=== PATIENT | male | born 1935 | race Hispanic/Latino ===

== ENCOUNTER 2017-02-15 10:11 | Inpatient (IN) | payer MEDICARE ==
--- NOTE | 2017-02-15 10:49 | Emergency Department Report ---
ED Altered Mental Status HPI - General Chief Complaint: Altered Mental Status Stated Complaint: SLURRED SPEECH Time Seen by Provider: 02/15/17 10:36 Source: patient, EMS Mode of arrival: Stretcher Limitations: Altered Mental Status - History of Present Illness Initial Comments: 81-year-old male presents to the emergency department for evaluation of altered mental status. Patient states that several weeks he has been having intermittent episodes of confusion and dizziness. He states he is unable to walk a straight line. He reports symptoms got worse this morning. He denies pain, but does report ringing in his left ear. There are no other complaints. MD Complaint: confusion -: Gradual, week(s) Severity: moderate Consistency of Symptoms: waxing and waning, getting worse Context: history of similar presen Associated Symptoms: denies other symptoms - Related Data Allergies Allergy/AdvReac Type Severity Reaction Status Date / Time No Known Allergies Allergy Unverified 02/15/17 10:36 ED Review of Systems ROS: Stated complaint: SLURRED SPEECH Other details as noted in HPI Comment: All other systems reviewed and negative Neurological: confusion, abnormal gait, vertigo ED Past Medical Hx - Past Medical History Previous Medical History?: Yes Hx Hypertension: Yes - Surgical History Past Surgical History?: No - Family History Family history: no significant - Social History Smoking Status: Never Smoker Substance Use Type: None ED Physical Exam - General Limitations: No Limitations General appearance: alert, in no apparent distress - Head Head exam: Present: atraumatic, normocephalic - Eye Eye exam: Present: normal appearance, PERRL, EOMI - ENT ENT exam: Present: normal exam, normal orophraynx, mucous membranes moist, TM's normal bilaterally, normal external ear exam, other (slightly decreased hearing) - Neck Neck exam: Present: normal inspection, full ROM. Absent: tenderness - Respiratory Respiratory exam: Present: normal lung sounds bilaterally. Absent: respiratory distress - Cardiovascular Cardiovascular Exam: Present: regular rate, normal rhythm, normal heart sounds - GI/Abdominal GI/Abdominal exam: Present: soft, normal bowel sounds. Absent: distended, tenderness - Extremities Exam Extremities exam: Present: normal inspection, full ROM. Absent: tenderness - Back Exam Back exam: Present: normal inspection, full ROM. Absent: tenderness - Neurological Exam Neurological exam: Present: alert, oriented X3, other (Upon standing, patient reports some dizziness, but appears to be steady on his feet. ). Absent: motor sensory deficit - Skin Skin exam: Present: warm, dry, intact - Assessment Assessment Interval: Baseline - Level of Consciousness 1a. Level of Consciousness: alert - LOC Questions 1b. LOC Questions: answers correctly - LOC Command 1c. LOC Commands: performs tasks correctly - Best Gaze 2. Best Gaze: normal - Visual 3. Visual: no visual loss - Facial Palsy 4. Facial Palsy: normal symmetrical movement - Motor Arm 5b. Motor Arm Right: no drift 5a. Motor Arm Left: no drift - Motor Leg 6a. Motor Leg Left: no drift 6b. Motor Leg Right: no drift - Limb Ataxia 7. Limb Ataxia: absent - Sensory 8. Sensory: normal - Best Language 9. Best Language: no aphasia - Dysarthria 10. Dysarthria: normal - Extinction and Inattention 11. Extinction/Inattention: no abnormality - Scoring Total Score: 0 Stroke Severity: No Stroke Symptoms ED Course Vital Signs 02/15/17 02/15/17 02/15/17 10:25 10:30 11:00 Temperature 97.6 F Pulse Rate 79 75 70 Respiratory 16 15 Rate Blood Pressure 139/62 135/65 O2 Sat by Pulse 98 99 Oximetry 02/15/17 11:46 Temperature Pulse Rate Respiratory 18 Rate Blood Pressure O2 Sat by Pulse 99 Oximetry - Lab Data Result diagrams: 02/15/17 10:53 02/15/17 10:53 Lab Results 02/15/17 02/15/17 02/15/17 Range/Units 10:53 10:53 10:53 WBC 5.5 (4.5-11.0) K/mm3 RBC 4.29 (3.65-5.03) M/mm3 Hgb 12.7 (11.8-15.2) gm/dl Hct 38.3 (35.5-45.6) % MCV 89 (84-94) fl MCH 30 (28-32) pg MCHC 33 (32-34) % RDW 14.4 (13.2-15.2) % Plt Count 186 (140-440) K/mm3 Lymph % (Auto) 13.7 (13.4-35.0) % Simpson % (Auto) 6.1 (0.0-7.3) % Eos % (Auto) 2.7 (0.0-4.3) % Baso % (Auto) 0.7 (0.0-1.8) % Lymph # 0.8 L (1.2-5.4) K/mm3 Simpson # 0.3 (0.0-0.8) K/mm3 Eos # 0.1 (0.0-0.4) K/mm3 Baso # 0.0 (0.0-0.1) K/mm3 Seg Neutrophils % 76.8 H (40.0-70.0) % Seg Neutrophils # 4.3 (1.8-7.7) K/mm3 Sodium 144 (137-145) mmol/L Potassium 2.8 L* (3.6-5.0) mmol/L Chloride 108.7 H (98-107) mmol/L Carbon Dioxide 16 L (22-30) mmol/L Anion Gap 22 mmol/L BUN 41 H (9-20) mg/dL Creatinine 2.3 H (0.8-1.5) mg/dL Estimated GFR 27 ml/min BUN/Creatinine Ratio 17.82 % Glucose 150 H (75-100) mg/dL POC Glucose (70-105) Lactic Acid 1.1 (0.7-2.0) mmol/L Calcium 8.0 L (8.4-10.2) mg/dL Magnesium 2.6 H (1.7-2.3) mg/dL Total Bilirubin 0.2 (0.1-1.2) mg/dL AST 63 H (5-40) units/L ALT 26 (7-56) units/L Alkaline Phosphatase 58 (35-129) units/L Total Protein 7.0 (6.3-8.2) g/dL Albumin 3.7 L (3.9-5) g/dL Albumin/Globulin Ratio 1.1 % TSH (0.270-4.200) mlU/mL Urine Color (Yellow) Urine Turbidity (Clear) Urine pH (5.0-7.0) Ur Specific [place] (1.003-1.030) Urine Protein (Negative) mg/dL Urine Glucose (UA) (Negative) mg/dL Urine Ketones (Negative) mg/dL Urine Blood (Negative) Urine Nitrite (Negative) Urine Bilirubin (Negative) Urine Urobilinogen (<2.0) mg/dL Ur Leukocyte Esterase (Negative) Urine WBC (Auto) (0.0-6.0) /HPF Urine RBC (Auto) (0.0-6.0) /HPF U Epithel Cells (Auto) (0-13.0) /HPF Urine Mucus /HPF Salicylates (2.8-20.0) mg/dL Urine Opiates Screen Urine Methadone Screen Acetaminophen (10.0-30.0) ug/mL Ur Barbiturates Screen Ur Phencyclidine Scrn Ur Amphetamines Screen U Benzodiazepines Scrn Urine Cocaine Screen U Marijuana (THC) Screen Drugs of Abuse Note Plasma/Serum Alcohol (0-0.07) gm% 02/15/17 02/15/17 02/15/17 Range/Units 10:53 10:53 10:53 WBC (4.5-11.0) K/mm3 RBC (3.65-5.03) M/mm3 Hgb (11.8-15.2) gm/dl Hct (35.5-45.6) % MCV (84-94) fl MCH (28-32) pg MCHC (32-34) % RDW (13.2-15.2) % Plt Count (140-440) K/mm3 Lymph % (Auto) (13.4-35.0) % Simpson % (Auto) (0.0-7.3) % Eos % (Auto) (0.0-4.3) % Baso % (Auto) (0.0-1.8) % Lymph # (1.2-5.4) K/mm3 Simpson # (0.0-0.8) K/mm3 Eos # (0.0-0.4) K/mm3 Baso # (0.0-0.1) K/mm3 Seg Neutrophils % (40.0-70.0) % Seg Neutrophils # (1.8-7.7) K/mm3 Sodium (137-145) mmol/L Potassium (3.6-5.0) mmol/L Chloride (98-107) mmol/L Carbon Dioxide (22-30) mmol/L Anion Gap mmol/L BUN (9-20) mg/dL Creatinine (0.8-1.5) mg/dL Estimated GFR ml/min BUN/Creatinine Ratio % Glucose (75-100) mg/dL POC Glucose (70-105) Lactic Acid (0.7-2.0) mmol/L Calcium (8.4-10.2) mg/dL Magnesium (1.7-2.3) mg/dL Total Bilirubin (0.1-1.2) mg/dL AST (5-40) units/L ALT (7-56) units/L Alkaline Phosphatase (35-129) units/L Total Protein (6.3-8.2) g/dL Albumin (3.9-5) g/dL Albumin/Globulin Ratio % TSH 0.156 L (0.270-4.200) mlU/mL Urine Color (Yellow) Urine Turbidity (Clear) Urine pH (5.0-7.0) Ur Specific [place] (1.003-1.030) Urine Protein (Negative) mg/dL Urine Glucose (UA) (Negative) mg/dL Urine Ketones (Negative) mg/dL Urine Blood (Negative) Urine Nitrite (Negative) Urine Bilirubin (Negative) Urine Urobilinogen (<2.0) mg/dL Ur Leukocyte Esterase (Negative) Urine WBC (Auto) (0.0-6.0) /HPF Urine RBC (Auto) (0.0-6.0) /HPF U Epithel Cells (Auto) (0-13.0) /HPF Urine Mucus /HPF Salicylates 56.3 H (2.8-20.0) mg/dL Urine Opiates Screen Urine Methadone Screen Acetaminophen < 15.0 (10.0-30.0) ug/mL Ur Barbiturates Screen Ur Phencyclidine Scrn Ur Amphetamines Screen U Benzodiazepines Scrn Urine Cocaine Screen U Marijuana (THC) Screen Drugs of Abuse Note Plasma/Serum Alcohol (0-0.07) gm% 02/15/17 02/15/17 02/15/17 Range/Units 10:53 11:27 11:45 WBC (4.5-11.0) K/mm3 RBC (3.65-5.03) M/mm3 Hgb (11.8-15.2) gm/dl Hct (35.5-45.6) % MCV (84-94) fl MCH (28-32) pg MCHC (32-34) % RDW (13.2-15.2) % Plt Count (140-440) K/mm3 Lymph % (Auto) (13.4-35.0) % Simpson % (Auto) (0.0-7.3) % Eos % (Auto) (0.0-4.3) % Baso % (Auto) (0.0-1.8) % Lymph # (1.2-5.4) K/mm3 Simpson # (0.0-0.8) K/mm3 Eos # (0.0-0.4) K/mm3 Baso # (0.0-0.1) K/mm3 Seg Neutrophils % (40.0-70.0) % Seg Neutrophils # (1.8-7.7) K/mm3 Sodium (137-145) mmol/L Potassium (3.6-5.0) mmol/L Chloride (98-107) mmol/L Carbon Dioxide (22-30) mmol/L Anion Gap mmol/L BUN (9-20) mg/dL Creatinine (0.8-1.5) mg/dL Estimated GFR ml/min BUN/Creatinine Ratio % Glucose (75-100) mg/dL POC Glucose 139 H (70-105) Lactic Acid (0.7-2.0) mmol/L Calcium (8.4-10.2) mg/dL Magnesium (1.7-2.3) mg/dL Total Bilirubin (0.1-1.2) mg/dL AST (5-40) units/L ALT (7-56) units/L Alkaline Phosphatase (35-129) units/L Total Protein (6.3-8.2) g/dL Albumin (3.9-5) g/dL Albumin/Globulin Ratio % TSH (0.270-4.200) mlU/mL Urine Color Yellow (Yellow) Urine Turbidity Clear (Clear) Urine pH 5.0 (5.0-7.0) Ur Specific [place] 1.018 (1.003-1.030) Urine Protein 30 mg/dl (Negative) mg/dL Urine Glucose (UA) Neg (Negative) mg/dL Urine Ketones Tr (Negative) mg/dL Urine Blood Mod (Negative) Urine Nitrite Neg (Negative) Urine Bilirubin Neg (Negative) Urine Urobilinogen < 2.0 (<2.0) mg/dL Ur Leukocyte Esterase Neg (Negative) Urine WBC (Auto) 1.0 (0.0-6.0) /HPF Urine RBC (Auto) 1.0 (0.0-6.0) /HPF U Epithel Cells (Auto) < 1.0 (0-13.0) /HPF Urine Mucus Few /HPF Salicylates (2.8-20.0) mg/dL Urine Opiates Screen Urine Methadone Screen Acetaminophen (10.0-30.0) ug/mL Ur Barbiturates Screen Ur Phencyclidine Scrn Ur Amphetamines Screen U Benzodiazepines Scrn Urine Cocaine Screen U Marijuana (THC) Screen Drugs of Abuse Note Plasma/Serum Alcohol < 0.01 (0-0.07) gm% 02/15/17 Range/Units 11:45 WBC (4.5-11.0) K/mm3 RBC (3.65-5.03) M/mm3 Hgb (11.8-15.2) gm/dl Hct (35.5-45.6) % MCV (84-94) fl MCH (28-32) pg MCHC (32-34) % RDW (13.2-15.2) % Plt Count (140-440) K/mm3 Lymph % (Auto) (13.4-35.0) % Simpson % (Auto) (0.0-7.3) % Eos % (Auto) (0.0-4.3) % Baso % (Auto) (0.0-1.8) % Lymph # (1.2-5.4) K/mm3 Simpson # (0.0-0.8) K/mm3 Eos # (0.0-0.4) K/mm3 Baso # (0.0-0.1) K/mm3 Seg Neutrophils % (40.0-70.0) % Seg Neutrophils # (1.8-7.7) K/mm3 Sodium (137-145) mmol/L Potassium (3.6-5.0) mmol/L Chloride (98-107) mmol/L Carbon Dioxide (22-30) mmol/L Anion Gap mmol/L BUN (9-20) mg/dL Creatinine (0.8-1.5) mg/dL Estimated GFR ml/min BUN/Creatinine Ratio % Glucose (75-100) mg/dL POC Glucose (70-105) Lactic Acid (0.7-2.0) mmol/L Calcium (8.4-10.2) mg/dL Magnesium (1.7-2.3) mg/dL Total Bilirubin (0.1-1.2) mg/dL AST (5-40) units/L ALT (7-56) units/L Alkaline Phosphatase (35-129) units/L Total Protein (6.3-8.2) g/dL Albumin (3.9-5) g/dL Albumin/Globulin Ratio % TSH (0.270-4.200) mlU/mL Urine Color (Yellow) Urine Turbidity (Clear) Urine pH (5.0-7.0) Ur Specific [place] (1.003-1.030) Urine Protein (Negative) mg/dL Urine Glucose (UA) (Negative) mg/dL Urine Ketones (Negative) mg/dL Urine Blood (Negative) Urine Nitrite (Negative) Urine Bilirubin (Negative) Urine Urobilinogen (<2.0) mg/dL Ur Leukocyte Esterase (Negative) Urine WBC (Auto) (0.0-6.0) /HPF Urine RBC (Auto) (0.0-6.0) /HPF U Epithel Cells (Auto) (0-13.0) /HPF Urine Mucus /HPF Salicylates (2.8-20.0) mg/dL Urine Opiates Screen Presumptive negative Urine Methadone Screen Presumptive negative Acetaminophen (10.0-30.0) ug/mL Ur Barbiturates Screen Presumptive negative Ur Phencyclidine Scrn Presumptive negative Ur Amphetamines Screen Presumptive negative U Benzodiazepines Scrn Presumptive negative Urine Cocaine Screen Presumptive negative U Marijuana (THC) Screen Presumptive negative Drugs of Abuse Note Disclamer Plasma/Serum Alcohol (0-0.07) gm% - EKG Data -: EKG Interpreted by Sd EKG shows normal: sinus rhythm, axis, intervals, QRS complexes, ST-T waves Rate: normal When compared to previous EKG there are: previous EKG unavailable Interpretation: normal EKG - Radiology Data Radiology results: report reviewed, image reviewed CT of the brain shows no acute intracranial abnormality. - Medical Decision Making Lab and imaging results reviewed and discussed with the patient and friend at bedside. Potassium is being replaced orally. Giving IV fluids. I have spoken with Dr. Baldwin, nephrology. Patient is to be admitted by the hospitalist. - Differential Diagnosis cerebellar stroke, labrynthitis Critical care attestation.: If time is entered above; I have spent that time in minutes in the direct care of this critically ill patient, excluding procedure time. ED Disposition Clinical Impression: Hypokalemia Salicylate overdose Qualifiers: Encounter type: initial encounter Injury intent: accidental or unintentional Qualified Code(s): T39.091A - Poisoning by salicylates, accidental ( unintentional), initial encounter Disposition: OP ADMITTED IP TO THIS HOSP Is pt being admited?: Yes Condition: Stable Referrals: PRIMARY CARE, [Primary Care Provider] - 3-5 Days Time of Disposition: 13:40
[2017-02-15 11:17] LABS: Basophils % (Auto) 0.7 % (0.0-1.8); Eosinophils % (Auto) 2.7 % (0.0-4.3); Hematocrit 38.3 % (35.5-45.6); Hemoglobin 12.7 gm/dl (11.8-15.2); Mean Corpuscular HGB Conc 33 % (32-34); Mean Corpuscular Hemoglobin 30 pg (28-32); Mean Corpuscular Volume 89 fl (84-94); Platelet Count 186 K/mm3 (140-440); Red Blood Count 4.29 M/mm3 (3.65-5.03); Red Cell Distribution Width 14.4 % (13.2-15.2); White Blood Count 5.5 K/mm3 (4.5-11.0)
[2017-02-15 11:33] LABS: Albumin 3.7 g/dL (3.9-5); Albumin/Globulin Ratio 1.1 %; BUN/Creatinine Ratio 17.82; Bilirubin,Total 0.2 mg/dL (0.1-1.2); Chloride 108.7 mmol/L (98-107); Magnesium 2.6 mg/dL (1.7-2.3)
[2017-02-15 11:37] LABS: Potassium 2.8 mmol/L (3.6-5.0)
[2017-02-15 11:47] LABS: Urine Drugs of Abuse Note Disclamer
[2017-02-15 11:56] LABS: Bilirubin,Urine NEG (Negative); Blood,Urine MOD (Negative); Ketones,Urine TR mg/dL (Negative); Leukocyte Esterase,Urine NEG (Negative); Mucus,Urine FEW /HPF; Nitrite,Urine NEG (Negative); Urobilinogen,Urine < 2.0 mg/dL (<2.0)
[2017-02-15] MEDS ORDERED: K-DUR PO ONE ×2 (12:10→15:52)
[2017-02-15] MEDS ORDERED: NACL 0.9% 1000 ML 1,000 ML IV ONE (12:10)
--- NOTE | 2017-02-15 12:46 | Cat Scan Report ---
CT scan of head without contrast: History: Altered mental status. Findings: Ventricles are normal in size and midline in location. Focal area of low attenuation anterior right basal ganglia, anterior and posterior left basal ganglia suggestive of chronic lacunar infarct. Periventricular area of low attenuation. Moderate volume loss. No evidence of hemorrhage. 2 mm focal area of low attenuation left ze/midbrain suggesting a chronic lacunar infarct. Impression: No acute intracranial abnormality. Multiple chronic lacunar infarcts. Mild cortical atrophy with small vessel ischemic changes. .
[2017-02-15] MEDS ORDERED: SODIUM BICARBONATE 150 MEQ in D5W 1,000 ML IV SCH (16:00)
[2017-02-15] MEDS: KCL 10MEQ/100ML 10 MEQ/100 ML BAG IV SCH ×4 (18:13→23:56)
[2017-02-15 18:58] LABS: ISTAT Base Excess -6; ISTAT DEVICE 0; ISTAT HCO3 16.1; ISTAT PCO2 17.8 (35-45); ISTAT PH 7.564 (7.35-7.45); ISTAT PO2 126 (80-105); ISTAT SO2 99; ISTAT TCO2 17
--- NOTE | 2017-02-15 20:38 | Consultation ---
History of Present Illness - Reason for Consult Consult date: 02/15/17 acute renal failure, chronic renal failure, hypokalemia, metabolic acidosis, other Requesting physician: MARY ELLEN ACOSTA - History of Present Illness 81-year-old male admitted after he presents to the emergency department for evaluation of dizziness several weeks. In association with the dizziness he reports ringing in the left ear and inability to walk a straight line. He reports symptoms got worse this morning so ED visit. No aggravating or relieving factors. Initial labs in ED showed that he has elevated CR of 2.2, and a serum bicarb of 17 and potassium of 2.8. He also had salicylate level checked which was at elevated at 56. Denies deliberate intoxication/suicidal attempt. We are consulted to assit with management of electrolyte abnormalities/ and intoxication. Past History Past Medical History: hypertension Past Surgical History: No surgical history Social history: lives with family. denies: smoking, alcohol abuse, IV drug use Family history: denies: diabetes, hypertension, other (no kidney disease) Medications and Allergies Allergies Allergy/AdvReac Type Severity Reaction Status Date / Time No Known Allergies Allergy Unverified 02/15/17 10:36 Active Meds: Active Medications Sodium Bicarbonate 150 meq/ (Dextrose) 1,150 mls @ 125 mls/hr IV DIRECT JUILAN Review of Systems Constitutional: no weight loss, no weight gain, no fever, no chills Ears, nose, mouth and throat: ear pain (left), tinnitis Cardiovascular: no chest pain, no orthopnea, no palpitations, no edema Respiratory: no cough, no hemoptysis, no shortness of breath Gastrointestinal: no abdominal pain, no nausea, no vomiting, no diarrhea Genitourinary Male: no dysuria, no hematuria, no flank pain Rectal: no pain, no incontinence Musculoskeletal: no neck stiffness, no neck pain, no shooting arm pain Integumentary: no rash, no pruritis, no redness Neurological: gait dysfunction, other (dizziness ) Psychiatric: no anxiety, no memory loss, no change in sleep habits Endocrine: no cold intolerance, no heat intolerance Hematologic/Lymphatic: no easy bruising, no easy bleeding Allergic/Immunologic: no urticaria, no allergic rhinitis Exam - Vital Signs Vital signs: Vital Signs Pulse 79 02/15/17 10:25 - General Appearance General appearance: well-developed, well-nourished, appears stated age EENT: PERRL, mucous membranes moist Neck: Present: neck supple, trachea midline. Absent: JVD/HJR, Masses Respiratory: Clear to Ascultation, Other (no wheezing) Heart: regular, normal heart rate, S1S2, no murmurs Gastrointestinal: Present: normal. Absent: tenderness, distended, masses, guarding Integumentary: no rash, warm and dry Neurologic: no focal deficit, alert and oriented x3, strength 5/5 Musculoskeletal: Absent: deformities, joint swelling Psychiatric: mood/affect appropriate, cooperative Results - Lab Results 02/15/17 10:53 02/15/17 10:53 Most recent lab results Calcium 8.0 mg/dL (8.4-10.2) L 02/15/17 10:53 Magnesium 2.6 mg/dL (1.7-2.3) H 02/15/17 10:53 Assessment and Plan 1. PABLO vs PABLO on CKD, likely related to chronic NSAID ingestion and prerenal azotemia 2. Salicylate intoxication 3. Metabolic acidosis/respiratory alkalosis 2/2 Dx #2 4. Hypokalemia likely 2/2 Dx #2 5. AMS likely 2/2 Dx# 2 6. Left ear pain/tinnitus Plan: K replete Check magnesium level Started D5W with 150 cc of sodium bicarb at 125 cc/hr Check ABG, urine PH Serial ASA levels, BMP, urine PH If ASA levels rise despite measures , progression in his renal disease or neuro sx, pulmonary edema, will consider HD. Poison control to be notified by ED Care plan discussed with ED attending Further recommendations to follow Thank you for the consult.
[2017-02-15] MEDS ORDERED: PERCOCET 5/325 PO PRN (21:24)
[2017-02-15] MEDS ORDERED: TYLENOL PO PRN (21:24)
[2017-02-15] MEDS ORDERED: DULCOLAX PR PRN (21:24)
[2017-02-15] MEDS ORDERED: MILK OF MAGNESIA PO PRN (21:24)
[2017-02-15] MEDS ORDERED: ZOFRAN IV PRN (21:24)
--- NOTE | 2017-02-15 21:24 | History and Physical Report ---
History of Present Illness Date of examination: 02/15/17 Date of admission: 02/15/17 13:41 Chief complaint: Unsteady gait 2 weeks Ringing in the ear 2 weeks History of present illness: Patient is a poor Historian.Took history with the help of a neighbor.Hard of Hearing. 81-year-old male presents to the emergency department for evaluation of altered mental status. Patient states that several weeks he has been having intermittent episodes of confusion and dizziness. He states he is unable to walk a straight line. He reports symptoms got worse this morning. He denies pain, but does report ringing in his left ear. There are no other complaints. MD Complaint: confusion -: Gradual, week(s) Severity: moderate Consistency of Symptoms: waxing and waning, getting worse Context: history of similar presen Associated Symptoms: denies other symptoms No SOB No CP etc Past History Past Medical History: hypertension Past Surgical History: No surgical history Social history: Lives alone. denies: smoking, alcohol abuse, IV drug use Family history: denies: diabetes, hypertension, other (no kidney disease) Medications and Allergies Allergies Allergy/AdvReac Type Severity Reaction Status Date / Time No Known Allergies Allergy Unverified 02/15/17 10:36 Active Meds: Active Medications Sodium Bicarbonate 150 meq/ (Dextrose) 1,150 mls @ 125 mls/hr IV DIRECT JULIAN Review of Systems All systems: negative Constitutional: no weight loss, no weight gain Ears, nose, mouth and throat: tinnitis (For 2 weeks) Cardiovascular: no chest pain, no orthopnea, no syncope, no lightheadedness, no shortness of breath Respiratory: no cough, no cough with sputum Gastrointestinal: no nausea, no vomiting, no diarrhea, no constipation Genitourinary Male: no dysuria, no hematuria, no flank pain, no discharge, no urinary frequency, no urinary hesitancy Musculoskeletal: no neck stiffness, no neck pain Integumentary: no rash, no pruritis, no redness, no sores, no wounds, no jaundice, no boils, no blisters Neurological: no seizures, no syncope Psychiatric: no anxiety, no suicidal ideation, no depression Endocrine: no cold intolerance, no heat intolerance, no polyphagia, no excessive thirst, no polydipsia, no polyuria, no nocturia, no excessive sweating , no flushing, no weight change Hematologic/Lymphatic: no easy bruising, no easy bleeding Allergic/Immunologic: no urticaria, no allergic rhinitis, no wheezing Exam - Physical Exam Narrative exam: Well developed well nourished male - Constitutional Vitals: Temp Pulse Resp BP Pulse Ox 98.9 F 77 18 163/83 98 02/15/17 21:11 02/15/17 21:11 02/15/17 21:11 02/15/17 21:11 02/15/17 21:11 General appearance: Present: no acute distress, well-nourished - EENT Eyes: Present: PERRL ENT: hearing intact, clear oral mucosa - Neck Neck: Present: supple, normal ROM - Respiratory Respiratory effort: normal Respiratory: bilateral: CTA - Cardiovascular Rhythm: regular Heart Sounds: Present: S1 & S2. Absent: rub, click - Extremities Extremities: pulses symmetrical, No edema Peripheral Pulses: within normal limits - Abdominal General gastrointestinal: Present: soft, non-tender, non-distended, normal bowel sounds Male genitourinary: Present: normal - Integumentary Integumentary: Present: clear, warm, dry - Musculoskeletal Musculoskeletal: gait normal, strength equal bilaterally - Psychiatric Psychiatric: appropriate mood/affect, intact judgment & insight - Neurologic Neurologic: CNII-XII intact, moves all extremities - Allied Health Allied health notes reviewed: nursing Results - Labs CBC & Chem 7: 02/16/17 04:05 02/15/17 20:49 Labs: Laboratory Last Values WBC 5.5 K/mm3 (4.5-11.0) 02/15/17 10:53 RBC 4.29 M/mm3 (3.65-5.03) 02/15/17 10:53 Hgb 12.7 gm/dl (11.8-15.2) 02/15/17 10:53 Hct 38.3 % (35.5-45.6) 02/15/17 10:53 MCV 89 fl (84-94) 02/15/17 10:53 MCH 30 pg (28-32) 02/15/17 10:53 MCHC 33 % (32-34) 02/15/17 10:53 RDW 14.4 % (13.2-15.2) 02/15/17 10:53 Plt Count 186 K/mm3 (140-440) 02/15/17 10:53 Lymph % (Auto) 13.7 % (13.4-35.0) 02/15/17 10:53 [place] % (Auto) 6.1 % (0.0-7.3) 02/15/17 10:53 Eos % (Auto) 2.7 % (0.0-4.3) 02/15/17 10:53 Baso % (Auto) 0.7 % (0.0-1.8) 02/15/17 10:53 Lymph # 0.8 K/mm3 (1.2-5.4) L 02/15/17 10:53 [place] # 0.3 K/mm3 (0.0-0.8) 02/15/17 10:53 Eos # 0.1 K/mm3 (0.0-0.4) 02/15/17 10:53 Baso # 0.0 K/mm3 (0.0-0.1) 02/15/17 10:53 Seg Neutrophils % 76.8 % (40.0-70.0) H 02/15/17 10:53 Seg Neutrophils # 4.3 K/mm3 (1.8-7.7) 02/15/17 10:53 POC ABG pH 7.564 (7.35-7.45) H 02/15/17 18:45 POC ABG pCO2 17.8 (35-45) L 02/15/17 18:45 POC ABG pO2 126 (80-105) H 02/15/17 18:45 POC ABG HCO3 16.1 02/15/17 18:45 POC ABG Total CO2 17 02/15/17 18:45 POC ABG O2 Sat 99 02/15/17 18:45 POC ABG Base Excess -6 02/15/17 18:45 FiO2 21 % 02/15/17 18:45 Sodium 144 mmol/L (137-145) 02/15/17 10:53 Potassium 2.8 mmol/L (3.6-5.0) L* 02/15/17 10:53 Chloride 108.7 mmol/L (98-107) H 02/15/17 10:53 Carbon Dioxide 16 mmol/L (22-30) L 02/15/17 10:53 Anion Gap 22 mmol/L 02/15/17 10:53 BUN 41 mg/dL (9-20) H 02/15/17 10:53 Creatinine 2.3 mg/dL (0.8-1.5) H 02/15/17 10:53 Estimated GFR 27 ml/min 02/15/17 10:53 BUN/Creatinine Ratio 17.82 % 02/15/17 10:53 Glucose 150 mg/dL (75-100) H 02/15/17 10:53 POC Glucose 139 (70-105) H 02/15/17 11:27 Lactic Acid 0.6 mmol/L (0.7-2.0) L 02/15/17 13:53 Calcium 8.0 mg/dL (8.4-10.2) L 02/15/17 10:53 Magnesium 2.6 mg/dL (1.7-2.3) H 02/15/17 10:53 Total Bilirubin 0.2 mg/dL (0.1-1.2) 02/15/17 10:53 AST 63 units/L (5-40) H 02/15/17 10:53 ALT 26 units/L (7-56) 02/15/17 10:53 Alkaline Phosphatase 58 units/L (35-129) 02/15/17 10:53 Total Protein 7.0 g/dL (6.3-8.2) 02/15/17 10:53 Albumin 3.7 g/dL (3.9-5) L 02/15/17 10:53 Albumin/Globulin Ratio 1.1 % 02/15/17 10:53 TSH 0.156 mlU/mL (0.270-4.200) L 02/15/17 10:53 Urine Color Yellow (Yellow) 02/15/17 11:45 Urine Turbidity Clear (Clear) 02/15/17 11:45 Urine pH 5.0 (5.0-7.0) 02/15/17 11:45 Ur Specific [place] 1.018 (1.003-1.030) 02/15/17 11:45 Urine Protein 30 mg/dl mg/dL (Negative) 02/15/17 11:45 Urine Glucose (UA) Neg mg/dL (Negative) 02/15/17 11:45 Urine Ketones Tr mg/dL (Negative) 02/15/17 11:45 Urine Blood Mod (Negative) 02/15/17 11:45 Urine Nitrite Neg (Negative) 02/15/17 11:45 Urine Bilirubin Neg (Negative) 02/15/17 11:45 Urine Urobilinogen < 2.0 mg/dL (<2.0) 02/15/17 11:45 Ur Leukocyte Esterase Neg (Negative) 02/15/17 11:45 Urine WBC (Auto) 1.0 /HPF (0.0-6.0) 02/15/17 11:45 Urine RBC (Auto) 1.0 /HPF (0.0-6.0) 02/15/17 11:45 U Epithel Cells (Auto) < 1.0 /HPF (0-13.0) 02/15/17 11:45 Urine Mucus Few /HPF 02/15/17 11:45 Salicylates 49.7 mg/dL (2.8-20.0) H 02/15/17 15:10 Urine Opiates Screen Presumptive negative 02/15/17 11:45 Urine Methadone Screen Presumptive negative 02/15/17 11:45 Acetaminophen < 15.0 ug/mL (10.0-30.0) 02/15/17 10:53 Ur Barbiturates Screen Presumptive negative 02/15/17 11:45 Ur Phencyclidine Scrn Presumptive negative 02/15/17 11:45 Ur Amphetamines Screen Presumptive negative 02/15/17 11:45 U Benzodiazepines Scrn Presumptive negative 02/15/17 11:45 Urine Cocaine Screen Presumptive negative 02/15/17 11:45 U Marijuana (THC) Screen Presumptive negative 02/15/17 11:45 Drugs of Abuse Note Disclamer 02/15/17 11:45 Plasma/Serum Alcohol < 0.01 gm% (0-0.07) 02/15/17 10:53 - Imaging and Cardiology EKG: report reviewed (NSR) Assessment and Plan Advance Directives: Yes (Full code) VTE prophylaxis?: Chemical Plan of care discussed with patient/family: Yes - Patient Problems (1) Acute renal failure Current Visit: Yes Status: Acute Qualifiers: Acute renal failure type: unspecified Qualified Code(s): N17.9 - Acute kidney failure, unspecified Plan to address problem: Possibly sec to NSAID's.IV fluids for now. (2) Salicylate overdose Current Visit: Yes Status: Chronic Qualifiers: Encounter type: initial encounter Injury intent: accidental or unintentional Qualified Code(s): T39.091A - Poisoning by salicylates, accidental (unintentional), initial encounter Plan to address problem: IV fluids for now.Patient to stop salicylates in future.Patient counseled. No suicidal intent.Mental Health consult not ordered. Serial ASA levels, BMP, urine PH If ASA levels rise despite measures , progression in his renal disease or neuro sx, pulmonary edema, consider HD.Nephrology consulted. (3) Hypokalemia Current Visit: Yes Status: Acute Plan to address problem: Supplemented (4) Metabolic acidosis Current Visit: Yes Status: Acute Plan to address problem: sec to Salicylateingestion.IV fluids for now. (5) DVT prophylaxis Current Visit: Yes Status: Acute Plan to address problem: on Lovenox
[2017-02-15] MEDS ORDERED: DILAUDID IV PRN (21:28)
[2017-02-15 21:42] LABS: Albumin 3.8 g/dL (3.9-5); Albumin/Globulin Ratio 1.1 %; BUN/Creatinine Ratio 16.95; Bilirubin,Total 0.2 mg/dL (0.1-1.2); Chloride 112.3 mmol/L (98-107); Potassium 3.3 mmol/L (3.6-5.0); Total Protein 7.3 g/dL (6.3-8.2)
[2017-02-15] MEDS: PEPCID PO SCH (22:36)
[2017-02-15] MEDS: D5NS 1,000 ML IV SCH (22:37)
[2017-02-16] MEDS: KCL 10MEQ/100ML 10 MEQ/100 ML BAG IV SCH ×2 (01:17→03:12)
[2017-02-16 06:17] LABS: Basophils % (Auto) 0.4 % (0.0-1.8); Eosinophils % (Auto) 4.4 % (0.0-4.3); Hematocrit 37.1 % (35.5-45.6); Hemoglobin 12.2 gm/dl (11.8-15.2); Mean Corpuscular HGB Conc 33 % (32-34); Mean Corpuscular Hemoglobin 29 pg (28-32); Mean Corpuscular Volume 89 fl (84-94); Platelet Count 174 K/mm3 (140-440); Red Blood Count 4.16 M/mm3 (3.65-5.03); White Blood Count 5.8 K/mm3 (4.5-11.0)
[2017-02-16] MEDS: D5NS 1,000 ML IV SCH ×2 (07:02→11:12)
[2017-02-16 08:53] LABS: BUN/Creatinine Ratio 18.75; Calcium 7.6 mg/dL (8.4-10.2); Chloride 118.3 mmol/L (98-107); Potassium 3.6 mmol/L (3.6-5.0)
[2017-02-16] MEDS ORDERED: LOVENOX SUB-Q SCH (10:00)
--- NOTE | 2017-02-16 10:23 | Progress Note ---
Assessment and Plan Assessment and plan: 1. Acute renal failure. Etiology secondary to Acute kidney injury from chronic NSAID ingestion and prerenal azotemia. We do not have a baseline creatinine to compare. Patient's creatinine however has improved from 2.3-1.6. Continue IV fluid hydration/sodium bicarbonate infusion. We'll check serial salicylate levels, BMP and urine pH. Nephrology following. 2. Salicylate intoxication. No need for hemodialysis currently. Continue to monitor ASA levels and BMP. 3. Metabolic acidosis. Etiology secondary to #2. Continue to monitor. 4. Hypokalemia. Replete potassium as needed. 5. Metabolic Encephalopathy. Resolved. 6. Left ear pain/tinnitis. Etiology secondary to #2. 7. DVT prophylaxis. Continue Lovenox. History Interval history: 81-year-old male admitted with diagnosis of salicylate overdose and acute renal failure. No new issues overnight. Hospitalist Physical - Constitutional Vitals: Temp Pulse Resp BP Pulse Ox 97.9 F 72 20 168/77 100 02/16/17 07:22 02/16/17 07:22 02/16/17 07:22 02/16/17 07:22 02/16/17 07:22 General appearance: Present: no acute distress, well-nourished - EENT Eyes: Present: PERRL, EOM intact ENT: hearing intact, clear oral mucosa, dentition normal - Neck Neck: Present: supple, normal ROM - Respiratory Respiratory effort: normal Respiratory: bilateral: CTA - Cardiovascular Rhythm: regular Heart Sounds: Present: S1 & S2. Absent: gallop, rub - Extremities Extremities: no ischemia, No edema, Full ROM - Abdominal General gastrointestinal: soft, non-tender, non-distended, normal bowel sounds - Integumentary Integumentary: Present: clear, warm, dry - Neurologic Neurologic: CNII-XII intact, moves all extremities Results - Labs CBC & Chem 7: 02/16/17 04:05 02/16/17 08:18 Labs: Laboratory Last Values WBC 5.8 K/mm3 (4.5-11.0) 02/16/17 04:05 RBC 4.16 M/mm3 (3.65-5.03) 02/16/17 04:05 Hgb 12.2 gm/dl (11.8-15.2) 02/16/17 04:05 Hct 37.1 % (35.5-45.6) 02/16/17 04:05 MCV 89 fl (84-94) 02/16/17 04:05 MCH 29 pg (28-32) 02/16/17 04:05 MCHC 33 % (32-34) 02/16/17 04:05 RDW 15.0 % (13.2-15.2) 02/16/17 04:05 Plt Count 174 K/mm3 (140-440) 02/16/17 04:05 Lymph % (Auto) 27.3 % (13.4-35.0) 02/16/17 04:05 [place] % (Auto) 8.9 % (0.0-7.3) H 02/16/17 04:05 Eos % (Auto) 4.4 % (0.0-4.3) H 02/16/17 04:05 Baso % (Auto) 0.4 % (0.0-1.8) 02/16/17 04:05 Lymph # 1.6 K/mm3 (1.2-5.4) 02/16/17 04:05 [place] # 0.5 K/mm3 (0.0-0.8) 02/16/17 04:05 Eos # 0.3 K/mm3 (0.0-0.4) 02/16/17 04:05 Baso # 0.0 K/mm3 (0.0-0.1) 02/16/17 04:05 Seg Neutrophils % 59.0 % (40.0-70.0) 02/16/17 04:05 Seg Neutrophils # 3.4 K/mm3 (1.8-7.7) 02/16/17 04:05 POC ABG pH 7.564 (7.35-7.45) H 02/15/17 18:45 POC ABG pCO2 17.8 (35-45) L 02/15/17 18:45 POC ABG pO2 126 (80-105) H 02/15/17 18:45 POC ABG HCO3 16.1 02/15/17 18:45 POC ABG Total CO2 17 02/15/17 18:45 POC ABG O2 Sat 99 02/15/17 18:45 POC ABG Base Excess -6 02/15/17 18:45 FiO2 21 % 02/15/17 18:45 Sodium 148 mmol/L (137-145) H 02/16/17 08:18 Potassium 3.6 mmol/L (3.6-5.0) 02/16/17 08:18 Chloride 118.3 mmol/L (98-107) H 02/16/17 08:18 Carbon Dioxide 14 mmol/L (22-30) L 02/16/17 08:18 Anion Gap 19 mmol/L 02/16/17 08:18 BUN 30 mg/dL (9-20) H 02/16/17 08:18 Creatinine 1.6 mg/dL (0.8-1.5) H 02/16/17 08:18 Estimated GFR 41 ml/min 02/16/17 08:18 BUN/Creatinine Ratio 18.75 % 02/16/17 08:18 Glucose 109 mg/dL (75-100) H 02/16/17 08:18 POC Glucose 139 (70-105) H 02/15/17 11:27 Hemoglobin A1c 5.7 % (4-6) 02/15/17 10:53 Lactic Acid 0.6 mmol/L (0.7-2.0) L 02/15/17 13:53 Calcium 7.6 mg/dL (8.4-10.2) L 02/16/17 08:18 Magnesium 2.6 mg/dL (1.7-2.3) H 02/15/17 10:53 Total Bilirubin 0.2 mg/dL (0.1-1.2) 02/15/17 20:49 AST 66 units/L (5-40) H 02/15/17 20:49 ALT 29 units/L (7-56) 02/15/17 20:49 Alkaline Phosphatase 61 units/L (35-129) 02/15/17 20:49 Total Protein 7.3 g/dL (6.3-8.2) 02/15/17 20:49 Albumin 3.8 g/dL (3.9-5) L 02/15/17 20:49 Albumin/Globulin Ratio 1.1 % 02/15/17 20:49 TSH 0.156 mlU/mL (0.270-4.200) L 02/15/17 10:53 Urine Color Yellow (Yellow) 02/15/17 11:45 Urine Turbidity Clear (Clear) 02/15/17 11:45 Urine pH 5.0 (5.0-7.0) 02/15/17 11:45 Ur Specific [place] 1.018 (1.003-1.030) 02/15/17 11:45 Urine Protein 30 mg/dl mg/dL (Negative) 02/15/17 11:45 Urine Glucose (UA) Neg mg/dL (Negative) 02/15/17 11:45 Urine Ketones Tr mg/dL (Negative) 02/15/17 11:45 Urine Blood Mod (Negative) 02/15/17 11:45 Urine Nitrite Neg (Negative) 02/15/17 11:45 Urine Bilirubin Neg (Negative) 02/15/17 11:45 Urine Urobilinogen < 2.0 mg/dL (<2.0) 02/15/17 11:45 Ur Leukocyte Esterase Neg (Negative) 02/15/17 11:45 Urine WBC (Auto) 1.0 /HPF (0.0-6.0) 02/15/17 11:45 Urine RBC (Auto) 1.0 /HPF (0.0-6.0) 02/15/17 11:45 U Epithel Cells (Auto) < 1.0 /HPF (0-13.0) 02/15/17 11:45 Urine Mucus Few /HPF 02/15/17 11:45 Salicylates 45.9 mg/dL (2.8-20.0) H 02/15/17 20:49 Urine Opiates Screen Presumptive negative 02/15/17 11:45 Urine Methadone Screen Presumptive negative 02/15/17 11:45 Acetaminophen < 15.0 ug/mL (10.0-30.0) 02/15/17 10:53 Ur Barbiturates Screen Presumptive negative 02/15/17 11:45 Ur Phencyclidine Scrn Presumptive negative 02/15/17 11:45 Ur Amphetamines Screen Presumptive negative 02/15/17 11:45 U Benzodiazepines Scrn Presumptive negative 02/15/17 11:45 Urine Cocaine Screen Presumptive negative 02/15/17 11:45 U Marijuana (THC) Screen Presumptive negative 02/15/17 11:45 Drugs of Abuse Note Disclamer 02/15/17 11:45 Plasma/Serum Alcohol < 0.01 gm% (0-0.07) 02/15/17 10:53
--- NOTE | 2017-02-16 10:45 | Progress Note ---
Assessment and Plan 1. PABLO vs PABLO on CKD, likely related to chronic NSAID ingestion and prerenal azotemia 2. Salicylate intoxication 3. Metabolic acidosis/respiratory alkalosis 2/2 Dx #2 4. Hypokalemia likely 2/2 Dx #2 5. AMS likely 2/2 Dx# 2, resolved 6. Left ear pain/tinnitus Plan: K improved and salicylate level improving Pt alert and walking in his room. No dizziness He remains to have significant acidosis. Will continue bicarb drip (rate adjusted) Serial ASA levels, BMP, urine PH No need for dialysis at present. Pt responding to conservative medical management. Discussed with son. Subjective Date of service: 02/16/17 Interval history: Feels better, No SOB/CP. Objective - Vital Signs Vital signs: Vital Signs - 12hr 02/16/17 02/16/17 02/16/17 00:43 01:20 01:48 Temperature 98.2 F Pulse Rate 80 Pulse Rate [ 80 78 Left] Respiratory 20 22 Rate Blood Pressure 133/72 [Left Arm] O2 Sat by Pulse 98 Oximetry 02/16/17 02/16/17 05:39 07:22 Temperature 98.3 F 97.9 F Pulse Rate Pulse Rate [ 80 72 Left] Respiratory 20 20 Rate Blood Pressure 158/76 168/77 [Left Arm] O2 Sat by Pulse 99 100 Oximetry - General Appearance General appearance: well-developed, well-nourished, appears stated age EENT: PERRL, mucous membranes moist Neck: no JVD, no thyromegaly, no carotid bruit, supple Respiratory: Present: Clear to Ascultation Cardiology: regular, normal heart rate, S1S2, no murmurs Gastrointestinal: normoactive bowel sounds, no tenderness Integumentary: no rash, warm and dry Neurologic: no focal deficit, alert and oriented x3, reflexes 2+ and symmetric, gait normal, strength 5/5 Musculoskeletal: no deformities, no erythema, no cyanosis, no clubbing Psychiatric: mood/affect appropriate, cooperative - Lab 02/16/17 04:05 02/16/17 08:18 Most recent lab results Calcium 7.6 mg/dL (8.4-10.2) L 02/16/17 08:18 Magnesium 2.6 mg/dL (1.7-2.3) H 02/15/17 10:53
--- NOTE | 2017-02-16 10:54 | XRay Report ---
AP CHEST : 02/15/17 13:41:00 CLINICAL: Salicylate intoxication. COMPARISON:None FINDINGS: Normal heart and pulmonary vessels.Aortic tortuosity and calcification. Prominent bilateral lung markings. An irregular subcentimeter right upper lobe lung nodule. The bones and soft tissues are unremarkable. IMPRESSION: Right upper lobe lung nodule. Recommend CT chest without contrast. Prominent lung markings but no CHF or pneumonia.
[2017-02-16] MEDS: PEPCID PO SCH (11:11)
[2017-02-17] MEDS: BENADRYL PO PRN ×2 (00:54→21:00)
[2017-02-17 05:47] LABS: Basophils % (Auto) 0.4 % (0.0-1.8); Eosinophils % (Auto) 3.5 % (0.0-4.3); Hematocrit 35.2 % (35.5-45.6); Hemoglobin 11.8 gm/dl (11.8-15.2); Mean Corpuscular HGB Conc 33 % (32-34); Mean Corpuscular Hemoglobin 30 pg (28-32); Mean Corpuscular Volume 88 fl (84-94); Platelet Count 166 K/mm3 (140-440); Red Blood Count 3.99 M/mm3 (3.65-5.03); Red Cell Distribution Width 14.3 % (13.2-15.2); White Blood Count 5.4 K/mm3 (4.5-11.0)
[2017-02-17 05:54] LABS: Calcium 7.5 mg/dL (8.4-10.2); Chloride 111.4 mmol/L (98-107)
--- NOTE | 2017-02-17 10:17 | Admit Criteria Form ---
Admission Criteria Documentation: HYPONATREMIA; HYPERNATREMIA; HYPOKALEMIA; HYPERKALEMIA; HYPOCALCEMIA; HYPERCALCEMIA Clinical Indications for Inpatient Care (Place 'X' for any and all applicable criteria): Ongoing inpatient care may be indicated for ANY ONE of the following [G](1)(2)(3 )(5): [ ]I. Hyponatremia with ANY ONE of the following: [ ]a) Sodium less than 130 mEq/L (mmol/L) (new) (6)(22) [ ]b) Sodium less than 135 mEq/L (mmol/L) with ANY ONE of the following: [ ]i) Severe medical etiology requiring inpatient management (eg, heart failure, hypovolemia) [ ]ii) Altered mental status [ ]iii) Seizures [ ]II. Hypernatremia with ANY ONE of the following: [ ]a) Sodium greater than 155 mEq/L (mmol/L) [ ]b) Sodium greater than 150 mEq/L (mmol/L) with ANY ONE of the following: [ ] i) Altered mental status [ ]ii) Seizures [ ]iii) Severe medical etiology (eg, hypovolemia, diabetes insipidus) [ ]iv) Severe weakness [ ]v) Severe medical etiology (eg, hemolysis, infection, drug overdose) [X]III. Hypokalemia with ANY ONE of the following: [ ]a) Potassium less than 2.5 mEq/L (mmol/L) despite outpatient and emergency treatment [X]b) Potassium less than 3.0 mEq/L (mmol/L) with ANY ONE of the following: [ ]i) Weakness [ ]ii) Cardiac abnormality (eg, arrhythmia, conduction disturbance) [ ]iii) Cardiac ischemia [ ]iv) Ileus [X]v) Ongoing medical cause requiring inpatient management. ( e.g., acute renal wasting, SIADH) [ ]vi) Other severe symptoms [ ] IV. Hyperkalemia with ANY ONE of the following: [ ]a) Potassium greater than 6.5 mEq/L (mmol/L) [ ]b) Potassium greater than 5 mEq/L (mmol/L) with ANY ONE of the following: [ ]i) Severe ECG findings [H] [ ]ii) Acute worsening of renal failure (creatinine greater than 2.5 mg/dL (221 micromoles/L) or significant elevation for age and size) [ ] V. Hypocalcemia with ANY ONE of the following: [ ]a) Calcium less than 7 mg/dL (1.75 mmol/L) despite outpatient and emergency treatment(19) [ ]b) Calcium less than 8 mg/dL (2 mmol/L) with significant symptoms or findings; examples include: [ ]i) Cardiac abnormality (eg, arrhythmia or conduction disturbance) [ ]ii) Altered mental status [ ]iii) Seizures [ ]iv) Breathing difficulty [ ]v) Muscle spasms [ ]. Hypercalcemia with ANY ONE of the following: [ ]a) Calcium greater than 14 mg/dL (3.5 mmol/L) [ ]b) Calcium greater than 12 mg/dL (3 mmol/L) with ANY ONE of the following: [ ]i) Significant dehydration or hypovolemia as indicated by ANY ONE of the following(2): [ ]1. Clinically significant dehydration as indicated by ANY ONE of the following: [ ]A. Acute loss of weight from baseline (5% of body weight in adults, 9% in pediatric patients) [ ]B. Hemodynamic instability [ ]C. Acute renal failure [ ]D. Serum sodium greater than 150 mEq/L (mmol/L) [ ]2) Dehydration that is persistent indicated by ALL of the following: [ ]A. Oral rehydration therapy not tolerated or insufficient to adequately correct dehydration [ ]B. Appropriate intravenous treatment (eg, fluids ) does not readily correct dehydration ie, after 12 to 24 hours of treatment) [ ]ii) Significant symptoms or findings; examples include: [ ]1) Altered mental status [ ]2) Cardiac abnormality (eg, arrhythmia, conduction disturbance) [ ]3) Cardiac abnormality (eg, arrhythmia, conduction disturbance) The original [facility] content created by [email or web address] has been revised. The portions of the content which have been revised are identified through the use of italic text or in bold, and [facility] has neither reviewed nor approved the modified material. All other unmodified content is copyright [facility] [employer] Please see references footnoted in the original [facility] [email or web address] edition 2016 Admission Criteria Met: Yes
--- NOTE | 2017-02-17 10:18 | Query- Renal Failure ---
Dearosaura Solano Date:___02/17/17 Half Sole Fitter/CDS:____Tejinder Renae Phone#:___[phone] Exercise your independent professional judgment when responding to query. Questions asked do not imply a particular answer is desired or expected. We greatly appreciate your clarification on this issue. Clinical Documentation States: 81 year old male was admitted on 02/15/17. The progress note (02/17/17) states " Acute renal failure. Etiology secondary to Acute kidney injury from chronic NSAID ingestion and prerenal azotemia. We do not have a baseline creatinine to compare. Patient's creatinine however has improved from 2.3-1.6. Continue IV fluid hydration/sodium bicarbonate infusion. We'll check serial salicylate levels, BMP and urine pH. Nephrology following. " Clinical Findings Show: 02/15/17 02/17/17 Creatinine: 2.3 1.2 Please clarify if you mean: Acute Renal Failure with or due to: [ ] Tubular Necrosis [ ] Medullary Necrosis [x ] Vasomotor Nephropathy [ ] Shock Kidney [ ] Tubular Nephrosis [ ] Renal Tubular Stasis [ ] Cortical Necrosis [ ] Acute Renal Failure (unspecified) [ ] Lower Tubular Nephrosis [ ] Other: [ ] Not Applicable Present on Admission: [x ] Yes (Y) [ ] Clinically undeterminable (W) [ ] No (N) Please also document response in your Progress Notes and/or Discharge Summary and indicate if the condition was present on admission. PRIYA
--- NOTE | 2017-02-17 10:44 | Progress Note ---
Assessment and Plan Assessment and plan: 1. Acute renal failure. Etiology secondary to Acute kidney injury from chronic NSAID ingestion and prerenal azotemia. We do not have a baseline creatinine to compare. Patient's creatinine however has improved from 2.3-1.2. Continue IV fluid hydration/sodium bicarbonate infusion. Continue to check serial salicylate levels, BMP and urine pH. Nephrology following. 2. Salicylate intoxication. No need for hemodialysis currently. Continue to monitor ASA levels and BMP. 3. Metabolic acidosis. Etiology secondary to #2. Continue to monitor. 4. Hypokalemia. Replete potassium as needed. 5. Metabolic Encephalopathy. Resolved. 6. Left ear pain/tinnitis. Etiology secondary to #2. 7. DVT prophylaxis. Continue Lovenox. History Interval history: 81-year-old male admitted with diagnosis of salicylate overdose and acute renal failure. No new issues overnight. Hospitalist Physical - Constitutional Vitals: Temp Pulse Resp BP Pulse Ox 97.9 F 80 16 146/67 93 02/17/17 09:08 02/17/17 09:08 02/17/17 09:08 02/17/17 09:08 02/17/17 09:08 General appearance: Present: no acute distress, well-nourished - EENT Eyes: Present: PERRL, EOM intact ENT: hearing intact, clear oral mucosa, dentition normal - Neck Neck: Present: supple, normal ROM - Respiratory Respiratory effort: normal Respiratory: bilateral: CTA - Cardiovascular Rhythm: regular Heart Sounds: Present: S1 & S2. Absent: gallop, rub - Extremities Extremities: no ischemia, No edema, Full ROM - Abdominal General gastrointestinal: soft, non-tender, non-distended, normal bowel sounds - Integumentary Integumentary: Present: clear, warm, dry - Neurologic Neurologic: CNII-XII intact, moves all extremities Results - Labs CBC & Chem 7: 02/17/17 04:10 02/17/17 04:10 Labs: Laboratory Last Values WBC 5.4 K/mm3 (4.5-11.0) 02/17/17 04:10 RBC 3.99 M/mm3 (3.65-5.03) 02/17/17 04:10 Hgb 11.8 gm/dl (11.8-15.2) 02/17/17 04:10 Hct 35.2 % (35.5-45.6) L 02/17/17 04:10 MCV 88 fl (84-94) 02/17/17 04:10 MCH 30 pg (28-32) 02/17/17 04:10 MCHC 33 % (32-34) 02/17/17 04:10 RDW 14.3 % (13.2-15.2) 02/17/17 04:10 Plt Count 166 K/mm3 (140-440) 02/17/17 04:10 Lymph % (Auto) 17.1 % (13.4-35.0) 02/17/17 04:10 Sherman % (Auto) 7.8 % (0.0-7.3) H 02/17/17 04:10 Eos % (Auto) 3.5 % (0.0-4.3) 02/17/17 04:10 Baso % (Auto) 0.4 % (0.0-1.8) 02/17/17 04:10 Lymph # 0.9 K/mm3 (1.2-5.4) L 02/17/17 04:10 Sherman # 0.4 K/mm3 (0.0-0.8) 02/17/17 04:10 Eos # 0.2 K/mm3 (0.0-0.4) 02/17/17 04:10 Baso # 0.0 K/mm3 (0.0-0.1) 02/17/17 04:10 Seg Neutrophils % 71.2 % (40.0-70.0) H 02/17/17 04:10 Seg Neutrophils # 3.8 K/mm3 (1.8-7.7) 02/17/17 04:10 POC ABG pH 7.564 (7.35-7.45) H 02/15/17 18:45 POC ABG pCO2 17.8 (35-45) L 02/15/17 18:45 POC ABG pO2 126 (80-105) H 02/15/17 18:45 POC ABG HCO3 16.1 02/15/17 18:45 POC ABG Total CO2 17 02/15/17 18:45 POC ABG O2 Sat 99 02/15/17 18:45 POC ABG Base Excess -6 02/15/17 18:45 FiO2 21 % 02/15/17 18:45 Sodium 147 mmol/L (137-145) H 02/17/17 04:10 Potassium 3.0 mmol/L (3.6-5.0) L 02/17/17 04:10 Chloride 111.4 mmol/L (98-107) H 02/17/17 04:10 Carbon Dioxide 21 mmol/L (22-30) L D 02/17/17 04:10 Anion Gap 18 mmol/L 02/17/17 04:10 BUN 24 mg/dL (9-20) H 02/17/17 04:10 Creatinine 1.2 mg/dL (0.8-1.5) 02/17/17 04:10 Estimated GFR 58 ml/min 02/17/17 04:10 BUN/Creatinine Ratio 20.00 % 02/17/17 04:10 Glucose 86 mg/dL (75-100) 02/17/17 04:10 POC Glucose 92 (70-105) 02/16/17 21:54 Hemoglobin A1c 5.7 % (4-6) 02/15/17 10:53 Lactic Acid 0.6 mmol/L (0.7-2.0) L 02/15/17 13:53 Calcium 7.5 mg/dL (8.4-10.2) L 02/17/17 04:10 Magnesium 2.6 mg/dL (1.7-2.3) H 02/15/17 10:53 Total Bilirubin 0.2 mg/dL (0.1-1.2) 02/15/17 20:49 AST 66 units/L (5-40) H 02/15/17 20:49 ALT 29 units/L (7-56) 02/15/17 20:49 Alkaline Phosphatase 61 units/L (35-129) 02/15/17 20:49 Total Protein 7.3 g/dL (6.3-8.2) 02/15/17 20:49 Albumin 3.8 g/dL (3.9-5) L 02/15/17 20:49 Albumin/Globulin Ratio 1.1 % 02/15/17 20:49 TSH 0.156 mlU/mL (0.270-4.200) L 02/15/17 10:53 Urine Color Yellow (Yellow) 02/15/17 11:45 Urine Turbidity Clear (Clear) 02/15/17 11:45 Urine pH 5.0 (5.0-7.0) 02/15/17 11:45 Ur Specific Allen 1.018 (1.003-1.030) 02/15/17 11:45 Urine Protein 30 mg/dl mg/dL (Negative) 02/15/17 11:45 Urine Glucose (UA) Neg mg/dL (Negative) 02/15/17 11:45 Urine Ketones Tr mg/dL (Negative) 02/15/17 11:45 Urine Blood Mod (Negative) 02/15/17 11:45 Urine Nitrite Neg (Negative) 02/15/17 11:45 Urine Bilirubin Neg (Negative) 02/15/17 11:45 Urine Urobilinogen < 2.0 mg/dL (<2.0) 02/15/17 11:45 Ur Leukocyte Esterase Neg (Negative) 02/15/17 11:45 Urine WBC (Auto) 1.0 /HPF (0.0-6.0) 02/15/17 11:45 Urine RBC (Auto) 1.0 /HPF (0.0-6.0) 02/15/17 11:45 U Epithel Cells (Auto) < 1.0 /HPF (0-13.0) 02/15/17 11:45 Urine Mucus Few /HPF 02/15/17 11:45 Salicylates 38.2 mg/dL (2.8-20.0) H 02/16/17 08:36 Urine Opiates Screen Presumptive negative 02/15/17 11:45 Urine Methadone Screen Presumptive negative 02/15/17 11:45 Acetaminophen < 15.0 ug/mL (10.0-30.0) 02/15/17 10:53 Ur Barbiturates Screen Presumptive negative 02/15/17 11:45 Ur Phencyclidine Scrn Presumptive negative 02/15/17 11:45 Ur Amphetamines Screen Presumptive negative 02/15/17 11:45 U Benzodiazepines Scrn Presumptive negative 02/15/17 11:45 Urine Cocaine Screen Presumptive negative 02/15/17 11:45 U Marijuana (THC) Screen Presumptive negative 02/15/17 11:45 Drugs of Abuse Note Disclamer 02/15/17 11:45 Plasma/Serum Alcohol < 0.01 gm% (0-0.07) 02/15/17 10:53
--- NOTE | 2017-02-17 10:55 | Progress Note ---
Assessment and Plan - Patient Problems (1) Metabolic encephalopathy Current Visit: Yes Status: Acute Plan to address problem: Patient has improved and is close to baseline state of dementia now. Had a long discussion with the son. Need to consider placement at longterm facility with emphasis on patients with dementia (2) Acute renal failure Current Visit: Yes Status: Acute Qualifiers: Acute renal failure type: unspecified Qualified Code(s): N17.9 - Acute kidney failure, unspecified Plan to address problem: Kidney function is improving. Continue medical management. No indication for dialysis. Continue volume repletion and monitor electrolytes and renal function (3) Hypokalemia Current Visit: Yes Status: Acute Plan to address problem: Supplement potassium and follow-up (4) Metabolic acidosis Current Visit: Yes Status: Acute Plan to address problem: Continue bicarbonate infusion (5) Salicylate overdose Current Visit: Yes Status: Chronic Qualifiers: Encounter type: initial encounter Injury intent: accidental or unintentional Qualified Code(s): T39.091A - Poisoning by salicylates, accidental (unintentional), initial encounter Plan to address problem: Follow-up salicylate levels Subjective Date of service: 02/17/17 Principal diagnosis: acute kidney injury Interval history: Patient seen lying in bed. Son at the bedside. She has dementia and walks several miles every day. He has been a bit confused but they have been getting by. Son who lives with him is an [employer] hazmat tanker driver and is not home some nights. Objective - Exam Narrative Exam: [Elderly male lying in bed] in no acute distress CVS [S1-S2 regular rate rhythm without murmur, rub or gallop] Chest [clear to auscultation] Abdomen [soft nondistended nontender no organomegaly no bruit bowel sounds present] Extremities [no edema no cyanosis or clubbing] Neuro [awake, alert oriented x3 no gross deficit] - Vital Signs Vital signs: Vital Signs - 12hr 02/17/17 02/17/17 02/17/17 00:58 01:00 05:00 Temperature 98.2 F 98.1 F Pulse Rate [ 88 75 Left] Respiratory 21 20 Rate Respiratory 18 Rate [denies] Blood Pressure 126/82 174/86 [Left Arm] O2 Sat by Pulse 98 Oximetry 02/17/17 09:08 Temperature 97.9 F Pulse Rate [ 80 Left] Respiratory 16 Rate Respiratory Rate [denies] Blood Pressure 146/67 [Left Arm] O2 Sat by Pulse 93 Oximetry - Lab 02/17/17 04:10 02/17/17 04:10 Most recent lab results Calcium 7.5 mg/dL (8.4-10.2) L 02/17/17 04:10 Magnesium 2.6 mg/dL (1.7-2.3) H 02/15/17 10:53
[2017-02-17] MEDS: LOVENOX SUB-Q SCH (17:59)
[2017-02-17] MEDS: PEPCID PO SCH (18:09)
[2017-02-17] MEDS: K-DUR PO SCH ×2 (18:09→20:50)
[2017-02-17] MEDS ORDERED: K-DUR PO SCH ×2 (19:00→22:00)
[2017-02-18 06:24] LABS: Anion Gap 17 mmol/L; Blood Urea Nitrogen 23 mg/dL (9-20); Calcium 7.7 mg/dL (8.4-10.2); Carbon Dioxide 22 mmol/L (22-30); Chloride 112.4 mmol/L (98-107); Glucose 84 mg/dL (75-100); Sodium 147 mmol/L (137-145)
[2017-02-18 06:38] LABS: Potassium 3.9 mmol/L (3.6-5.0)
[2017-02-18] MEDS ORDERED: LOPRESSOR PO SCH (10:00)
--- NOTE | 2017-02-18 10:51 | Discharge Summary ---
Providers - Providers Date of Admission: 02/15/17 13:41 Date of discharge: 02/18/17 Attending physician: ELLIE WINCHESTER 02/17/17 10:23 Physical Therapy Evaluation and Treat [CONS] Routine Comment: skill needs/ looking towards [facility] Reason For Exam: discharge disposition/has dementia Primary care physician: [employer] Hospitalization Condition: Stable Disposition: DC/[place] [facility] Time spent for discharge: 35 min Core Measure Documentation - Palliative Care Palliative Care/ Comfort Measures: Not Applicable - Core Measures Any of the following diagnoses?: none Exam - Constitutional Vitals: Temp Pulse Resp BP Pulse Ox 98.1 F 65 18 184/82 97 02/18/17 07:19 02/18/17 07:19 02/18/17 07:19 02/18/17 07:19 02/18/17 07:19 Plan Activity: advance as tolerated, fall precautions Diet: low cholesterol, low salt Follow up with: PRIMARY CARE,MD [Primary Care Provider] - 3-5 Days Prescriptions: amLODIPine [Norvasc] 10 mg PO QDAY #30 tablet Metoprolol [Lopressor TAB] 25 mg PO BID #60 tablet Pending Studies if sitter or other safety measures can be arranged
[2017-02-18] MEDS ORDERED: NORVASC PO SCH (11:00)
[2017-02-18] MEDS: LOVENOX SUB-Q SCH (11:06)
[2017-02-18] MEDS: PEPCID PO SCH (11:06)
[2017-02-18] MEDS ORDERED: APLISOL ID ONE (13:00)
[2017-02-18 15:52] VITALS: BP 148/70
== END 2017-02-18 16:50 | disposition home health service (06) | DRG 917 ==
LOC: ED 10:11 → 4A 13:41
PROVIDERS: ADMIT Internal Medicine; ATTEND Internal Medicine
PROC: 4A033R1 Measurement of Arterial Saturation, Peripheral, Percutaneous Approach (ICD-10-PCS; principal; 2017-02-15)
DX: T39.091A Poisoning by salicylates, accidental (unintentional), initial encounter (principal); N17.0 Acute kidney failure with tubular necrosis; G93.41 Metabolic encephalopathy; E87.2 Acidosis; Z68.1 Body mass index [BMI] 19.9 or less, adult; E87.6 Hypokalemia; H93.12 Tinnitus, left ear; I10 Essential (primary) hypertension; Z60.2 Problems related to living alone; Y92.89 Other specified places as the place of occurrence of the external cause
CPT/HCPCS: 36415; 36600; 70450; 71010; 80048; 80053; 80307; 80320; 81001; 82140; 82803; 82962; 83036; 83735; 84439; 84443; 84481; 85025; 93005; 93010; 96360; G0480; G8978-GP; G8979-GP; G8980-GP; J1650; J3480; J7030; J7042; J7070

== ENCOUNTER 2017-04-14 15:06 | Outpatient (CLI) | payer MEDICARE ==
[2017-04-14 15:32] LABS: Basophils % (Auto) 0.6 % (0.0-1.8); Hematocrit 40.2 % (35.5-45.6); Hemoglobin 13.4 gm/dl (11.8-15.2); Mean Corpuscular HGB Conc 33 % (32-34); Mean Corpuscular Hemoglobin 30 pg (28-32); Mean Corpuscular Volume 90 fl (84-94); Platelet Count 158 K/mm3 (140-440); Red Blood Count 4.47 M/mm3 (3.65-5.03); Red Cell Distribution Width 14.2 % (13.2-15.2); White Blood Count 4.8 K/mm3 (4.5-11.0)
[2017-04-14 15:49] LABS: Albumin/Globulin Ratio 1.3 %; BUN/Creatinine Ratio 16.15; Bilirubin,Total 0.6 mg/dL (0.1-1.2); Calcium 8.8 mg/dL (8.4-10.2); Chloride 101.1 mmol/L (98-107); Potassium 3.9 mmol/L (3.6-5.0)
== END 2017-04-14 15:07 | disposition home or self-care (01) ==
LOC: LAB 15:06
PROVIDERS: ATTEND Specialist
DX: R41.1 Anterograde amnesia (principal)
CPT/HCPCS: 36415; 80053; 82607; 82747; 84439; 84443; 85025

== ENCOUNTER 2017-05-05 09:05 | Outpatient (CLI) | payer MEDICARE ==
--- NOTE | 2017-05-07 18:31 | Magnetic Resonance Report ---
MR angiogram was performed of the intracranial circulation 3-D [id number] spoiled [place] images were obtained of the intracranial circulation. The images of the carotid arteries showed no areas of occlusion or aneurysmal dilatation. There was no right anterior communicating artery with the anterior cerebrals filling from the left. Irregularity was seen in both middle cerebrals and in the anterior cerebrals consistent with intracranial atherosclerotic disease. The Vertebral basilar system was also patent but the basilar filled only from the left, a normal variation. Irregularity was also seen in both posterior cerebral arteries. Impression: Abnormal MR angiogram of the intracranial circulation showing extensive intracranial atherosclerotic disease
--- NOTE | 2017-05-07 18:42 | Magnetic Resonance Report ---
MR angiography is performed of the great vessels of the neck 2-D time of flight spoiled [place] images were obtained of the great vessels of the neck. Images of the carotid circulation showed both a 60 % occlusion of the right internal carotid at the bifurcation. The right vertebral was not seen. The left vertebral and left carotid wre normal. Impression: Abnormal MR angiography of the cervical circulation. 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
--- NOTE | 2017-05-07 18:49 | Magnetic Resonance Report ---
MR scan of the cranium was performed without contrast. Pulse sequences included: 1. T1 weighted sagittal and axial images without contrast 2. T2 weighted axial and coronal images 3. FLAIR axial images 4. Diffusion-weighted axial images 5. Apparent diffusion coefficient images 6. gradient echo axial images Views of the posterior fossa showed a normal craniocervical junction. Cerebellar pontine angles were normal with normal seventh-eighth nerve complexes. Brainstem showed an area of increased signal in the left ze consistent with an old infarct. The cerebellum was normal. The ventricular system showed no dilatation or distortion. Images of the hemispheres showed small cystic lesions in the left and right frontal white matter areas with decreased perfusion on apparent diffusion coefficient images. Moderate white matter changes were seen consistent with araiosis. Mild cortical atrophy was present. Sinuses, flow voids in the [place], orbits, pituitary and basal ganglia were normal. Impression: Abnormal MR scan of the cranium without contrast. 1. 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 bifrontal cystic lesions consistent with old infarcts 3. araiosis and atrophy
== END 2017-05-05 09:06 | disposition home or self-care (01) ==
LOC: MRI 09:05 → OPU 09:05 → MRI 09:06 → EDSTATUS 09:30
PROVIDERS: ATTEND Specialist
DX: I65.21 Occlusion and stenosis of right carotid artery (principal); I63.9 Cerebral infarction, unspecified; I10 Essential (primary) hypertension; G31.9 Degenerative disease of nervous system, unspecified; G93.0 Cerebral cysts; Q27.8 Other specified congenital malformations of peripheral vascular system; C00.9 Malignant neoplasm of lip, unspecified; N28.9 Disorder of kidney and ureter, unspecified
CPT/HCPCS: 70544; 70547; 70551

== ENCOUNTER 2017-07-14 09:40 | Outpatient (CLI) | payer MEDICARE ==
--- NOTE | 2017-07-18 07:04 | Vascular Lab Report ---
CAROTID DUPLEX STUDY: RIGHT PSVEDV CCA PROX:61 9 CCA DIST:[id number] ICA PROX:6214 ICA MID:6812 ICA DIST:7313 ECA: 51 VERT: 32 7 LEFT PSVEDV CCA PROX:75 9 CCA DIST:6111 ICA PROX:5713 ICA MID:5913 ICA DIST:6715 ECA: 72 VERT: 37 7 REASON FOR EXAM: Stroke. COMMENTS ON THE RIGHT: Doppler frequency analysis is consistent with 16 to 49 percent diameter reduction of the internal carotid artery. Minimal amount of plaque is seen. The common carotid artery is patent. The external carotid artery is patent. The vertebral artery has antegrade flow. COMMENTS ON THE LEFT: Doppler frequency analysis is consistent with 16 to 49 percent diameter reduction of the internal carotid artery. Minimal amount of plaque is seen. The common carotid artery is patent. The external carotid artery is patent. The vertebral artery has antegrade flow. IMPRESSION: Less than 50% diameter reduction in the internal carotid arteries bilaterally. Consider repeat carotid artery duplex in 12 months.
== END 2017-07-14 09:41 | disposition home or self-care (01) ==
LOC: VAS 09:40
PROVIDERS: ATTEND Specialist
DX: I65.23 Occlusion and stenosis of bilateral carotid arteries (principal); I63.30 Cerebral infarction due to thrombosis of unspecified cerebral artery; I10 Essential (primary) hypertension; Z87.891 Personal history of nicotine dependence
CPT/HCPCS: 93880